=== PATIENT | male | born 1965 | race African-American/Black ===

== ENCOUNTER 2018-07-07 19:52 | Inpatient (IN) ==
[2018-07-07] MEDS ORDERED: ONDANSETRON 4 MG/2 ML VIAL IV STA (20:44)
[2018-07-07 21:12] LABS: Allen Test Positive; Pt O2 Delivery Device Room Air
[2018-07-07 21:13] LABS: ABG Base Excess 1.1 MMOL/L (-2.5-2.5); ABG HCO3 25.4 MMOL/L (20-26); ABG Oxygen Saturation 97.3 % (95-100); ABG PCO2 39.1 MM HG (35-48); ABG PH 7.422 (7.35-7.45); ABG PO2 98.4 MM HG (80-95); ABG TCO2 22.9 MMOL/L (23-27)
[2018-07-07 22:09] LABS: Hemoglobin 10.7 GM/DL (14.0-18.0); Monocytes % 6.8 % (1.7-12.7)
[2018-07-07 22:13] LABS: Basophils % 0.5 % (0.0-0.8); Eosinophils # 0.3 10*3/uL (0.0-0.87); Eosinophils % 3.4 % (0.00-10.9); Hematocrit 33.7 VOL% (42.0-52.0); Immature Granulocytes % 0.5 %; Immature Granulocytes Absolute 0.04 #; Lymphocytes # 1.3 10*3/uL (1.4-4.0); Lymphocytes % 16.7 % (21.2-54.2); Mean Corpuscular HGB Conc 31.8 GM/DL (32-36); Mean Corpuscular Hemoglobin 31 PG (27-34); Mean Corpuscular Volume 97.1 FL (87-102); Mean Platelet Volume 11.9 FL (9.6-12.0); Monocytes # 0.5 10*3/uL (0.11-0.8); Neutrophils # 5.5 10*3/uL (1.4-7.4); Neutrophils % 72.1 % (38.7-73.9); Platelet Count 140 T/CUMM (130-400); Red Blood Count 3.47 MC/CUMM (3.8-5.5); Red Cell Distribution Width 15.3 % (9.3-17.3); White Blood Count 7.6 T/CUMM (4-12)
[2018-07-07 22:28] LABS: PT Patient Result 10.5 SECS; Partial Thromboplastin Time 30.6 SECS (0-40)
[2018-07-07 22:34] LABS: Alanine Aminotransferase 19 U/L (16-61); Alkaline Phosphatase 81 U/L (45-117); Aspartate Amino Transferase 11 U/L (0-37); Blood Urea Nitrogen 39 MG/DL (7-18); Calcium 8.3 MG/DL (8.5-10.1); Glucose 102 MG/DL (74-106); Osmolality,Calculated 289.3 MOS/KG (273-304); Potassium 4.2 MMOL/L (3.5-5.1); Sodium 141 MMOL/L (136-145); Total Protein 6.9 G/DL (6.4-8.3); Troponin I < 0.015 NG/ML (0.00-0.045)
[2018-07-08] MEDS ORDERED: ORPHENADRINE 60 MG/2 ML VIAL ONE (00:10)
[2018-07-08] MEDS ORDERED: ORPHENADRINE 60 MG/2 ML VIAL IV STA (00:41)
[2018-07-08] MEDS ORDERED: DEXTROSE 50% 25 GM/50 ML SYRINGE IV PRN (01:47)
[2018-07-08] MEDS ORDERED: GLUCAGON 1 MG VIAL IM PRN (01:47)
[2018-07-08] MEDS: INSULIN LISPRO 100 UNIT/ML SUBCUT SCH ×2 (06:21→17:25)
[2018-07-08] MEDS: NIFEdipine 10 MG CAPSULE PO SCH (10:01)
[2018-07-08] MEDS: PANTOPRAZOLE 20 MG TABLET PO SCH (14:13)
[2018-07-08] MEDS: METOCLOPRAMIDE 5 MG TABLET PO SCH (14:13)
[2018-07-08] MEDS: CINACALCET 30 MG TABLET PO SCH (21:19)
[2018-07-09] MEDS: INSULIN LISPRO 100 UNIT/ML SUBCUT SCH ×2 (05:06→16:48)
[2018-07-09] MEDS: NIFEdipine 10 MG CAPSULE PO SCH (09:26)
[2018-07-09] MEDS ORDERED: cefOXitin 2,000 MG in SYRINGE 1 EACH IV ONE (10:50)
[2018-07-09] MEDS: METOCLOPRAMIDE 5 MG TABLET PO SCH (11:31)
[2018-07-09] MEDS: PANTOPRAZOLE 20 MG TABLET PO SCH (11:31)
[2018-07-09 12:20] LABS: Basophils % 0.6 % (0.0-0.8); Eosinophils # 0.2 10*3/uL (0.0-0.87); Eosinophils % 4.4 % (0.00-10.9); Hemoglobin 10.7 GM/DL (14.0-18.0); Immature Granulocytes % 0.4 %; Immature Granulocytes Absolute 0.02 #; Mean Corpuscular HGB Conc 31.5 GM/DL (32-36); Mean Corpuscular Hemoglobin 30 PG (27-34); Mean Corpuscular Volume 95.8 FL (87-102); Mean Platelet Volume 11.6 FL (9.6-12.0); Monocytes # 0.3 10*3/uL (0.11-0.8); Monocytes % 5.5 % (1.7-12.7); Neutrophils # 3.9 10*3/uL (1.4-7.4); Neutrophils % 71.1 % (38.7-73.9); Platelet Count 134 T/CUMM (130-400); Red Blood Count 3.55 MC/CUMM (3.8-5.5); Red Cell Distribution Width 14.7 % (9.3-17.3); White Blood Count 5.5 T/CUMM (4-12)
[2018-07-09 12:46] LABS: Osmolality,Calculated 289.5 MOS/KG (273-304)
[2018-07-09] MEDS: CINACALCET 30 MG TABLET PO SCH (21:03)
[2018-07-10 04:24] LABS: Basophils % 0.7 % (0.0-0.8); Eosinophils # 0.3 10*3/uL (0.0-0.87); Eosinophils % 4.9 % (0.00-10.9); Hemoglobin 10.2 GM/DL (14.0-18.0); Immature Granulocytes % 0.9 %; Immature Granulocytes Absolute 0.05 #; Lymphocytes # 1.2 10*3/uL (1.4-4.0); Lymphocytes % 20.4 % (21.2-54.2); Mean Corpuscular HGB Conc 31.9 GM/DL (32-36); Mean Corpuscular Hemoglobin 31 PG (27-34); Mean Corpuscular Volume 96.4 FL (87-102); Mean Platelet Volume 11.4 FL (9.6-12.0); Monocytes # 0.3 10*3/uL (0.11-0.8); Neutrophils # 3.8 10*3/uL (1.4-7.4); Neutrophils % 67.1 % (38.7-73.9); Platelet Count 133 T/CUMM (130-400); Red Blood Count 3.32 MC/CUMM (3.8-5.5); Red Cell Distribution Width 14.6 % (9.3-17.3); White Blood Count 5.7 T/CUMM (4-12)
[2018-07-10 04:39] LABS: Calcium 7.8 MG/DL (8.5-10.1); Osmolality,Calculated 292.4 MOS/KG (273-304); Potassium 4.8 MMOL/L (3.5-5.1)
[2018-07-10] MEDS: INSULIN LISPRO 100 UNIT/ML SUBCUT SCH ×2 (08:00→17:00)
[2018-07-10] MEDS: PANTOPRAZOLE 20 MG TABLET PO SCH (10:02)
[2018-07-10] MEDS: METOCLOPRAMIDE 5 MG TABLET PO SCH (10:03)
[2018-07-10] MEDS ORDERED: cefOXitin 2,000 MG in SYRINGE 1 EACH IV ONE (10:30)
[2018-07-10] MEDS ORDERED: HEPARIN 5,000 UNIT/1 ML VIAL ONE (13:01)
[2018-07-10] MEDS ORDERED: BUPIVACAINE 0.5% 50 ML VIAL ONE (13:02)
[2018-07-10] MEDS ORDERED: LIDOCAINE 1% 20 ML VIAL ONE (13:02)
[2018-07-10] MEDS ORDERED: MIDAZOLAM 2 MG/2 ML VIAL ONE (14:53)
[2018-07-10] MEDS ORDERED: fentaNYL 100 MCG/2 ML VIAL ONE (14:53)
[2018-07-10] MEDS ORDERED: PROPOFOL 200 MG/20 ML VIAL IV ONE (14:54)
[2018-07-10] MEDS ORDERED: ONDANSETRON 4 MG/2 ML VIAL ONE (15:08)
[2018-07-10] MEDS ORDERED: MEPERIDINE 25 MG/1 ML VIAL ONE (15:08)
[2018-07-10] MEDS ORDERED: MEPERIDINE 25 MG/1 ML VIAL IV PRN (15:13)
[2018-07-10] MEDS ORDERED: ONDANSETRON 4 MG/2 ML VIAL IV PRN (15:13)
[2018-07-10] MEDS ORDERED: HEPARIN 10,000 UNIT/10 ML VIAL IV PRN (18:53)
[2018-07-10] MEDS: CINACALCET 30 MG TABLET PO SCH (20:06)
[2018-07-10] MEDS: ACETAMINOPHEN 325 MG TABLET PO PRN (21:37)
[2018-07-11 05:39] LABS: Basophils # 0.1 10*3/uL (0.0-0.2); Basophils % 0.9 % (0.0-0.8); Eosinophils # 0.3 10*3/uL (0.0-0.87); Eosinophils % 4.6 % (0.00-10.9); Hematocrit 32.8 VOL% (42.0-52.0); Hemoglobin 10.4 GM/DL (14.0-18.0); Immature Granulocytes % 0.5 %; Immature Granulocytes Absolute 0.03 #; Lymphocytes # 1.1 10*3/uL (1.4-4.0); Mean Corpuscular HGB Conc 31.7 GM/DL (32-36); Mean Corpuscular Hemoglobin 31 PG (27-34); Mean Corpuscular Volume 96.5 FL (87-102); Monocytes # 0.5 10*3/uL (0.11-0.8); Neutrophils # 4.4 10*3/uL (1.4-7.4); Platelet Count 143 T/CUMM (130-400); Red Cell Distribution Width 14.9 % (9.3-17.3); White Blood Count 6.4 T/CUMM (4-12)
[2018-07-11 06:09] LABS: Calcium 7.8 MG/DL (8.5-10.1); Osmolality,Calculated 284.5 MOS/KG (273-304); Potassium 4.7 MMOL/L (3.5-5.1)
[2018-07-11] MEDS: INSULIN LISPRO 100 UNIT/ML SUBCUT SCH ×2 (08:00→17:00)
[2018-07-11] MEDS: ACETAMINOPHEN 325 MG TABLET PO PRN (09:36)
[2018-07-11] MEDS: METOCLOPRAMIDE 5 MG TABLET PO SCH (09:36)
[2018-07-11] MEDS: PANTOPRAZOLE 20 MG TABLET PO SCH (09:36)
[2018-07-11] MEDS: CINACALCET 30 MG TABLET PO SCH (20:23)
[2018-07-12] MEDS: ACETAMINOPHEN 325 MG TABLET PO PRN (05:42)
[2018-07-12 06:16] LABS: Basophils # 0.1 10*3/uL (0.0-0.2); Basophils % 0.8 % (0.0-0.8); Eosinophils # 0.3 10*3/uL (0.0-0.87); Eosinophils % 5.6 % (0.00-10.9); Hematocrit 31.9 VOL% (42.0-52.0); Hemoglobin 10.1 GM/DL (14.0-18.0); Immature Granulocytes % 0.3 %; Immature Granulocytes Absolute 0.02 #; Lymphocytes # 1.3 10*3/uL (1.4-4.0); Lymphocytes % 21.4 % (21.2-54.2); Mean Corpuscular HGB Conc 31.7 GM/DL (32-36); Mean Corpuscular Hemoglobin 30 PG (27-34); Mean Corpuscular Volume 96.1 FL (87-102); Mean Platelet Volume 11.8 FL (9.6-12.0); Monocytes # 0.4 10*3/uL (0.11-0.8); Monocytes % 7.2 % (1.7-12.7); Neutrophils % 64.7 % (38.7-73.9); Platelet Count 146 T/CUMM (130-400); Red Blood Count 3.32 MC/CUMM (3.8-5.5); Red Cell Distribution Width 14.5 % (9.3-17.3); White Blood Count 6.1 T/CUMM (4-12)
[2018-07-12 06:34] LABS: Calcium 7.8 MG/DL (8.5-10.1); Osmolality,Calculated 285.7 MOS/KG (273-304); Potassium 4.8 MMOL/L (3.5-5.1)
[2018-07-12] MEDS: INSULIN LISPRO 100 UNIT/ML SUBCUT SCH ×2 (07:30→17:10)
[2018-07-12] MEDS: PANTOPRAZOLE 20 MG TABLET PO SCH ×2 (07:52→08:18)
[2018-07-12] MEDS: METOCLOPRAMIDE 5 MG TABLET PO SCH ×2 (07:53→08:19)
[2018-07-12 18:15] VITALS: BP 130/85
== END 2018-07-12 17:28 | disposition home health service (06) | DRG 314 ==
LOC: N.EDINP 19:52 → N.ED 19:52 → SUATTDRO 23:42 → N.3E 07-08 00:15
PROVIDERS: ADMIT Emergency Medicine; ATTEND Internal Medicine Infectious Disease

== ENCOUNTER 2018-09-09 02:09 | Inpatient (IN) ==
[2018-09-09] MEDS ORDERED: DOCUSATE SODIUM 100 MG CAPSULE PO PRN (05:42)
[2018-09-09] MEDS ORDERED: ONDANSETRON 4 MG/2 ML VIAL IV PRN (05:42)
[2018-09-09] MEDS ORDERED: GLUCAGON 1 MG VIAL IM PRN (06:07)
[2018-09-09] MEDS ORDERED: DEXTROSE 50% 25 GM/50 ML VIAL IV PRN (06:07)
[2018-09-09 06:45] LABS: Basophils % 0.5 % (0.0-0.8); Hematocrit 34.2 VOL% (42.0-52.0); Hemoglobin 10.7 GM/DL (14.0-18.0); Immature Granulocytes % 0.3 %; Immature Granulocytes Absolute 0.01 #; Lymphocytes # 0.5 10*3/uL (1.4-4.0); Lymphocytes % 13.9 % (21.2-54.2); Mean Corpuscular HGB Conc 31.3 GM/DL (32-36); Mean Corpuscular Hemoglobin 30 PG (27-34); Mean Corpuscular Volume 94.2 FL (87-102); Mean Platelet Volume 11.9 FL (9.6-12.0); Monocytes # 0.2 10*3/uL (0.11-0.8); Monocytes % 5.9 % (1.7-12.7); Neutrophils # 3.1 10*3/uL (1.4-7.4); Neutrophils % 78.4 % (38.7-73.9); Platelet Count 116 T/CUMM (130-400); Red Blood Count 3.63 MC/CUMM (3.8-5.5); Red Cell Distribution Width 15.8 % (9.3-17.3); White Blood Count 3.9 T/CUMM (4-12)
[2018-09-09 07:10] LABS: Bilirubin,Total 0.5 MG/DL (0.2-1.0); Calcium 8.5 MG/DL (8.5-10.1); Osmolality,Calculated 279.8 MOS/KG (273-304); Total Protein 7.2 G/DL (6.4-8.3)
[2018-09-09] MEDS ORDERED: LEVOFLOXACIN INJ 750 MG in PREMIX 1 EACH IV ONE (08:00)
[2018-09-09] MEDS: INSULIN LISPRO 100 UNIT/ML SUBCUT SCH ×4 (10:24→21:07)
[2018-09-09] MEDS: PIPERACILLIN/TAZOBACTAM 3,375 MG in SODIUM CHLORIDE 0.9% 100 ML IV SCH (13:37)
[2018-09-09] MEDS ORDERED: HEPARIN 10,000 UNIT/10 ML VIAL IV PRN (15:30)
[2018-09-09] MEDS: ACETAMINOPHEN 325 MG TABLET PO PRN ×2 (17:19→22:49)
[2018-09-09] MEDS: CINACALCET 30 MG TABLET PO SCH (21:06)
[2018-09-10] MEDS: PIPERACILLIN/TAZOBACTAM 3,375 MG in SODIUM CHLORIDE 0.9% 100 ML IV SCH ×2 (01:04→13:47)
[2018-09-10 06:02] LABS: Basophils % 0.7 % (0.0-0.8); Eosinophils # 0.2 10*3/uL (0.0-0.87); Eosinophils % 5.9 % (0.00-10.9); Hematocrit 32.9 VOL% (42.0-52.0); Hemoglobin 10.1 GM/DL (14.0-18.0); Immature Granulocytes % 0.3 %; Immature Granulocytes Absolute 0.01 #; Lymphocytes % 34.3 % (21.2-54.2); Mean Corpuscular HGB Conc 30.7 GM/DL (32-36); Mean Corpuscular Hemoglobin 29 PG (27-34); Mean Corpuscular Volume 94.3 FL (87-102); Mean Platelet Volume 11.5 FL (9.6-12.0); Monocytes # 0.3 10*3/uL (0.11-0.8); Monocytes % 8.6 % (1.7-12.7); Neutrophils # 1.5 10*3/uL (1.4-7.4); Neutrophils % 50.2 % (38.7-73.9); Platelet Count 121 T/CUMM (130-400); Red Blood Count 3.49 MC/CUMM (3.8-5.5); Red Cell Distribution Width 15.9 % (9.3-17.3)
[2018-09-10 06:16] LABS: Calcium 8.4 MG/DL (8.5-10.1); Osmolality,Calculated 276.8 MOS/KG (273-304); Potassium 3.9 MMOL/L (3.5-5.1)
[2018-09-10] MEDS: INSULIN LISPRO 100 UNIT/ML SUBCUT SCH ×4 (09:21→21:16)
[2018-09-10] MEDS: CINACALCET 30 MG TABLET PO SCH (21:13)
[2018-09-10] MEDS: ACETAMINOPHEN 325 MG TABLET PO PRN (23:18)
[2018-09-11] MEDS: PIPERACILLIN/TAZOBACTAM 3,375 MG in SODIUM CHLORIDE 0.9% 100 ML IV SCH ×2 (01:22→19:04)
[2018-09-11] MEDS ORDERED: LEVOFLOXACIN INJ 500 MG in PREMIX 1 EACH IV SCH (08:00)
[2018-09-11] MEDS: INSULIN LISPRO 100 UNIT/ML SUBCUT SCH ×4 (09:54→21:23)
[2018-09-11] MEDS ORDERED: LOPERAMIDE 2 MG CAPSULE PO PRN (19:55)
[2018-09-11 21:11] LABS: Calcium 7.7 MG/DL (8.5-10.1); Osmolality,Calculated 270.2 MOS/KG (273-304); Potassium 4.2 MMOL/L (3.5-5.1)
[2018-09-11] MEDS: CINACALCET 30 MG TABLET PO SCH (21:25)
[2018-09-12] MEDS: INSULIN LISPRO 100 UNIT/ML SUBCUT SCH ×2 (07:30→12:09)
[2018-09-12 12:46] LABS: Varicella IgG Index > 8.0
[2018-09-12 13:22] VITALS: BP 111/59
[2018-09-13] MEDS ORDERED: LEVOFLOXACIN 500 MG TABLET PO SCH (09:00)
== END 2018-09-12 16:43 | disposition home health service (06) | DRG 867 ==
LOC: N.5E 03:27 → SUATTDRO 03:27
PROVIDERS: ADMIT Internal Medicine; ATTEND Internal Medicine